=== PATIENT | male | born 1965 | race Caucasian/White ===

== ENCOUNTER 2017-11-21 14:33 | Emergency (ER) | payer OTHER, SELFPAY ==
[2017-11-21 14:33] VITALS: BP 137/77; PULSE 65; RESP 16; TEMP 36.7; O2SAT 97; BMI 22.4
[2017-11-21] MEDS: Diphth,Pertuss(Acell),Tet Vac 0.5 ML Vial IM (15:27)
[2017-11-21 15:48] VITALS: BP 125/81; PULSE 59; RESP 16; O2SAT 98
--- NOTE | 2017-11-21 15:50 | ED.VISSUMM ---
- ER Visit Summary Date of Service: 11/21/17 Chief Complaint: Facial laceration History of Present Illness: The patient is a 52 M presenting for evaluation secondary to a facial laceration. Patient states that he was cleaning today and tried to stand up and struck the left side of his face on a dresser. He denies any loss of consciousness. He is not on any sort of anticoagulants. Denies any numbness weakness visual changes nausea or vomiting. His tetanus status is greater than 5 years. He denies any other injuries. Physical Examination: Physical exam unremarkable and noted in the template except for examination of the patient's face. There is evidence of a 2 cm semicircular laceration just lateral to the patient's left eyebrow. PRL, EOMI no evidence of entrapment. Test Results: None indicated Emergency Department Course and Treatment: Patient presented with a simple facial laceration. No imaging is indicated at this point. Patient's wound was anesthetized using 3 cc 1% lidocaine. Wound was copiously irrigated with sterile saline, and then the patient was prepped and draped in a sterile fashion. 4 simple interrupted 6-0 nylon sutures were placed with good hemostasis and good wound alignment. Patient tolerated this well Patient was recommended to follow-up with his primary care physician in 3-5 days for suture removal. Bacitracin was placed over the wound. Disposition: Discharge Impression: 1. 2 cm left eyebrow laceration 2. Laceration repair by ED physician This note was generated with [employer] dictation software. It may contain incorrect words, spelling, and punctuation that were not noted in review of the chart prior to signing ED Disposition - Plan for ED Patient: Disposition: Home or Assisted Living Chief Complaint: Laceration Diagnosis: Laceration of eyebrow Instructions: ED Laceration Facial Sutr Tape Referrals: Donald Garcia MD [Primary Care Provider] - 3-5 Days suture removal
== END 2017-11-21 15:57 | disposition home or self-care (01) ==
PROVIDERS: Emergency Provider Emergency Medicine; Family Provider Family Medicine; PCP Family Medicine
DX: S01.112A Laceration without foreign body of left eyelid and periocular area, initial encounter (principal); W22.8XXA Striking against or struck by other objects, initial encounter; Y93.E9 Activity, other interior property and clothing maintenance; Y92.9 Unspecified place or not applicable
CPT/HCPCS: 12011; 90471; 90715; 99283

== ENCOUNTER 2021-09-24 18:30 | Emergency (ER) | payer OTHER, SELFPAY ==
[2021-09-24 18:30] VITALS: BP 124/86; PULSE 73; RESP 15; TEMP 36.6; O2SAT 98; BMI 22.0
--- NOTE | 2021-09-24 18:54 | EX.ED.UPPERE ---
HPI History of Present Illness Chief Complaint: Upper Extremity Injury Informant: patient Occured/Mechanism Mechanism/Context: Yes injury Onset/Context/Timing Onset: Today and Hours Context: Sudden Onset Timing: Continuous Quality of Pain: Sharp Current Severity: Mild Maximum Severity: Mild Associated Symptoms Associated Symptoms: Negative for Parasthesia, Weakness and Loss of Funtion Narrative Narrative: 6-year-old male who was seen in past medical history. [id number]. No prior history of any surgeries right upper extremity. Patient works at [employer]. States he was lifting probably a 5 pound box today of empty plastic bottles and he felt discomfort in his proximal forearm just past his elbow. No prior history. No fall. No other trauma. Discomfort with movement. Prior similar symptoms: No Recent Illness/Hospitalization: No PFSH PFSH Medical History no medical history no medical history Home Medications NK 11/21/17 [History Last Taken Unknown] Allergy/AdvReac Type Severity Reaction Status Date / Time No Known Allergies Allergy Verified 09/24/21 18:32 Social History Smoking Status: Current every day smoker ROS ROS ED ROS Narrative Denies recent illness. Review of Systems ROS Unobtainable: Denies due to encephalopathy Constitutional Constitutional ED: Denies fever(s) Eyes Eyes: Denies change in vision ENT ENT ED: Denies ear pain Cardiovascular Cardiovascular: Denies chest pain Respiratory/Chest Respiratory/Chest: Denies cough or dyspnea Gastrointestinal Gastrointestinal: Denies abdominal pain, diarrhea, nausea or vomiting Genitourinary Genitourinary ED: Denies dysuria Musculoskeletal Musculoskeletal: Denies myalgias Integumentary Denies rash Neurologic Neurologic: Denies headache(s) Psychiatric Psychiatric: Denies depression Endocrine Endocrinology: Denies polyuria Hematologic/Lymphatic Hematologic/Lymphatic: Denies easy bruising Allergic/Immunologic Allergic/Immunologic ED: Denies urticaria EXAM Physical Exam Narrative Exam Narrative: Well-appearing middle-aged male. Vital signs stable afebrile. H EENT exam unremarkable. Lungs are clear. Heart regular rhythm with a murmur. Abdomen soft nontender. Moving all 4 extremities. Neurovascular intact. Specifically right arm the short elbow is nontender Range of motion. His right proximal forearm over the palmar aspect just distal to the elbow has mild tenderness. There is no deficit. 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 There is no bruising. No swelling. And no soft tissue deficit. Const Vital Signs: 09/24/21 18:30 Temperature 97.9 F Temperature Source Temporal Pulse Rate 73 Respiratory Rate 15 Blood Pressure 124/86 H Blood Pressure Mean 98 Pulse Ox 98 Oxygen Delivery Method Room Air Positive well nourished and well developed; Negative for obese, cachectic, contractures or unkempt General Appearance ED: well developed and NAD; Negative for unkempt, cachectic or contractures Nutritional Appearance: Negative for cachectic or obese HEENT Reports moist mucous membranes normocephalic and atraumatic; Negative for trauma or tenderness Eyes PERRL and EOMs intact bilaterally Neck full ROM and supple General: Negative for tenderness Chest Wall inspection of chest normal and palpation of chest normal Resp normal respiratory effort and clear to auscultation bilaterally Effort and Inspection: Negative for pain with movement Auscultation: Negative for rales, rhonchi or wheezes Cardio regular rate, regular rhythm, S1 normal heart sound, S2 normal heart sound and no murmurs GI non-tender, non-distended and no masses Inspection: Negative for abdominal distention Auscultation: normoactive bowel sounds Palpation: soft; Negative for tender, guarding or rebound tenderness present Back/Spine no CVA tenderness General Back: Negative for CVA tenderness Cervical Spine: Negative for cervical spine tenderness Thoracic Spine / Upper Back: Negative for thoracic spinal tenderness Extremity normal to inspection and full ROM Extremity Narrative: Mild tenderness soft tissue proximal right forearm just distal to the elbow. No swelling. Normal motor strength and sensation. Normal radial pulse. 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 No soft tissue deficit. Consistent with a myofascial strain. General Extremety ED: Negative for edema General Extremity: Negative for edema Neuro oriented x3, moves all extremities, no focal motor deficits and no sensory deficits noted Sensorium / Orientation: alert, oriented to person, oriented to place, oriented to time and stuporous; Negative for orientation impaired or lethargic Motor Exam: strength 5/5 throughout Psych mental status grossly normal Appearance: Negative for unkempt Attitude: No agitated Mood & Affect: Negative for depressed or tearful Skin Lesions: no lesions Rashes: no rashes Trauma: no lacerations or abrasions; Negative for abrasion or laceration MDM MDM MDM Narrative Medical decision making narrative: Count is normal. 56-year-old male. Work-related muscle strain right forearm. Labs nor x-rays are necessary. Motrin and Tylenol for pain. Limit lifting until pain-free. Discharge Plan Triage Chief Complaint: Upper Extremity Injury ED Provider: Mode Quiroz Dx/Rx/DC Orders Clinical Impression: Muscle strain of right forearm Instructions: ED Muscle Strain, Extremity Prescriptions: No Action NK RF: 0 Primary Care Provider: Donald Garcia Referrals: [facility]GROUP OF PHYSICIANS] - 1 Week if not improving Donald Garcia MD [Primary Care Provider] - Activity Restrictions/Additional Instructions: Ice your right forearm to decrease pain and swelling. Motrin and Tylenol for pain. No lifting more than 10 pounds until you are pain-free. This should progressively improve if not follow-up with [facility]. Disposition Disposition: Home, Self Care
== END 2021-09-24 19:27 | disposition home or self-care (01) ==
LOC: ED 19:14
PROVIDERS: Emergency Provider Emergency Medicine; PCP Family Medicine; Visit Provider Emergency Medicine
DX: S56.911A Strain of unspecified muscles, fascia and tendons at forearm level, right arm, initial encounter (principal); X50.0XXA Overexertion from strenuous movement or load, initial encounter; Y93.9 Activity, unspecified; Y92.9 Unspecified place or not applicable; F17.200 Nicotine dependence, unspecified, uncomplicated
CPT/HCPCS: 99282

== ENCOUNTER → 2022-05-25 | Outpatient (CLI) | payer OTHER, SELFPAY ==
[2022-05-25 15:27] LABS: Hematocrit 47.2 % (40-54); Hemoglobin 15.7 g/dL (13.0-16.5); Mean Corp Hgb Conc 33.3 g/dL (32-36); Mean Corpuscular Hgb 32.8 pg (27.0-32.0); Mean Corpuscular Volume 98.5 fL (80-94); Mean Platelet Vol. 9.5 fl (6.2-12.0); Platelet Count 394 K/mm3 (150-450); RBC Distribution Width CV 12.8 % (11.6-14.6); RBC Distribution Width SD 46.1 fl (35.1-43.9); Red Blood Count 4.79 M/mm3 (4.6-6.2); White Blood Count 8.3 K/mm3 (4.4-11.0)
[2022-05-25 15:48] LABS: Vitamin B12 603 pg/mL (211-911); Vitamin D,25 Hydroxy 43.5 ng/mL
[2022-05-25 16:00] LABS: ALB/GLOB Ratio 1.1 RATIO (0.9-2.4); AST(SGOT) 15 U/L (15-37); Alanine Aminotransfer ALT/SGPT 23 U/L (16-61); Albumin, Serum 3.8 g/dL (3.2-5.0); Alkaline Phosphatase 101 U/L (45-117); Anion Gap 8 (5-15); BUN 19 mg/dL (7-18); BUN/Creat Ratio 19.9 RATIO (10-20); Calcium,Total 8.8 mg/dL (8.5-10.1); Chloride 105 mmol/L (98-107); Cholesterol 190 mg/dL (200); Creatinine, Serum 0.96 mg/dL (0.70-1.30); EST Glomerular Filtration Rate 86 mL/min (>60); Est Glom Filt Rate - Afr Amer 104 mL/min (>60); Globulin 3.6 g/dL (2.2-4.2); Glucose 99 mg/dL (74-106); High Density Lipoprotein 48 mg/dL; PSA,Total - Annual Screen 0.36 ng/mL (0.00-4.00); Potassium 4.3 mmol/L (3.5-5.1); Protein, Total 7.4 g/dL (6.4-8.2); Sodium Level 138 mmol/L (136-145); Thyroid Stim Hormone (TSH) 1.24 uIU/mL (0.358-3.74); Triglycerides 95 mg/dL; Very Low Density Lipoprotein 19 mg/dL (5-40)
== END | disposition home or self-care (01) ==
LOC: MFPLAB 12:27
PROVIDERS: PCP Family Medicine; Referring Provider Family Medicine; Visit Provider Family Medicine
DX: Z13.220 Encounter for screening for lipoid disorders (principal); Z12.5 Encounter for screening for malignant neoplasm of prostate; R53.83 Other fatigue
CPT/HCPCS: 36415; 80053; 80061; 82306; 82607; 84153; 84403; 84443; 85027; G0103

== ENCOUNTER → 2022-06-01 | Outpatient (CLI) | payer OTHER, SELFPAY ==
--- NOTE | 2022-06-01 06:55 | CT_ITS ---
EXAM: CT CHEST, LUNG CANCER SCREENING WITHOUT INTRAVENOUS CONTRAST CLINICAL INDICATION: TOBACCO ABUSE TECHNIQUE: Helically acquired images were obtained of the chest without intravenous contrast using low dose (LDCT) lung cancer screening protocol. This CT exam was performed using one or more of the following dose reduction techniques: automated exposure control, adjustment of the mA and/or kV according to patient size, and/or use of iterative reconstruction technique. This report was created using [employer] report generation technology. COMPARISON: None. FINDINGS: LUNGS AND PLEURAL SPACES: In the right upper lobe medially there is a 5 mm nodule seen in series 2 image 96. Fleischner Society Guidelines for low-risk patients, no follow-up is necessary. For high-risk patients (smoking history or other known risk factors) an optional chest CT at 12 months could be performed. No pleural effusion or thickening. No pneumothorax. HEART: Unremarkable. Heart size is normal. No pericardial effusion. No significant coronary artery calcifications. MEDIASTINUM: Unremarkable. No mediastinal or hilar adenopathy. Esophagus is unremarkable. No hiatal hernia. THYROID: Unremarkable. No thyroid lesions. BONES/JOINTS: Unremarkable. No suspicious lytic or blastic abnormality. VASCULATURE: Unremarkable. Thoracic aorta is non-dilated. LYMPH NODES: Unremarkable. No enlarged lymph nodes. CT/Low Dose CT Lung Screening IMPRESSION: 1. 5 mm noncalcified nodule within the right upper lobe medially. No other nodules are identified. 2. Lung-RADS score: 3 - Probably Benign. Recommend low-dose CT (LDCT) in 6 months. Electronically Signed: Scooby Archuleta MD at 8:32 EDT ,
== END | disposition home or self-care (01) ==
LOC: CT 06:54
PROVIDERS: PCP Family Medicine; Referring Provider Family Medicine; Visit Provider Family Medicine
DX: Z12.2 Encounter for screening for malignant neoplasm of respiratory organs (principal); R91.1 Solitary pulmonary nodule; Z87.891 Personal history of nicotine dependence
CPT/HCPCS: 71271

== ENCOUNTER → 2023-06-05 | Outpatient (CLI) | payer BC, SELFPAY ==
--- NOTE | 2023-06-05 08:33 | CT_ITS ---
EXAM: CT CHEST, LUNG CANCER SCREENING WITHOUT INTRAVENOUS CONTRAST CLINICAL INDICATION: 6 mo fu for lung nodule TECHNIQUE: Helically acquired images were obtained of the chest without intravenous contrast using low dose (LDCT) lung cancer screening protocol. This CT exam was performed using one or more of the following dose reduction techniques: automated exposure control, adjustment of the mA and/or kV according to patient size, and/or use of iterative reconstruction technique. COMPARISON: Low-dose CT lung screening, 06/01/2022 FINDINGS: LUNGS AND PLEURAL SPACES: Apical parenchymal scarring bilaterally, right greater than left. Small apical blebs bilaterally. Unchanged 5 mm nodule in the right upper lobe medially (series 2, image 94). No pleural effusion or thickening. No new pulmonary nodules are identified. No focal airspace disease. HEART: No significant abnormality. Heart size is normal. No pericardial effusion. No significant coronary artery calcifications. MEDIASTINUM: No significant abnormality. No mediastinal or hilar adenopathy. Esophagus is unremarkable. No hiatal hernia. THYROID: No significant abnormality. No thyroid lesions. BONES/JOINTS: Degenerative changes in the spine. No suspicious lytic or blastic abnormality. VASCULATURE: No significant abnormality. Thoracic aorta is non-dilated. LYMPH NODES: No significant abnormality. No enlarged lymph nodes. CT/Low Dose CT Lung Screening IMPRESSION: Pulmonary nodule and mild emphysematous changes. ACR Lung CT Screening Reporting And Data System (Lung-RADS) score: 2S - Benign Appearance or Behavior. Additional clinically significant or potentially clinically significant findings are described. Recommend continued annual screening with a low-dose CT (LDCT) in 12 months. Electronically Signed: Darin Rick DO at 17:40 EDT ,
== END | disposition home or self-care (01) ==
PROVIDERS: PCP Family Medicine; Referring Provider Family Medicine; Visit Provider Family Medicine
DX: Z12.2 Encounter for screening for malignant neoplasm of respiratory organs (principal); R91.1 Solitary pulmonary nodule; Z87.891 Personal history of nicotine dependence
CPT/HCPCS: 71271

== ENCOUNTER → 2024-07-20 | Outpatient (CLI) | payer BC, SELFPAY ==
[2024-07-20 17:53] LABS: Hematocrit 40.2 % (40-54); Mean Corp Hgb Conc 34.8 g/dL (32-36); Mean Corpuscular Hgb 33.8 pg (27.0-32.0); Mean Corpuscular Volume 97.1 fL (80-94); Mean Platelet Vol. 8.8 fl (6.2-12.0); Platelet Count 363 K/mm3 (150-450); RBC Distribution Width CV 12.3 % (11.6-14.6); RBC Distribution Width SD 44.1 fl (35.1-43.9); Red Blood Count 4.14 M/mm3 (4.6-6.2); White Blood Count 11.2 K/mm3 (4.4-11.0)
[2024-07-20 18:23] LABS: Anion Gap 5 (5-15); BUN 23 mg/dL (7-18); BUN/Creat Ratio 23.1 RATIO (10-20); Calcium,Total 8.7 mg/dL (8.5-10.1); Chloride 108 mmol/L (98-107); Cholesterol 207 mg/dL (200); EST Glomerular Filtration Rate 81 mL/min (>60); Est Glom Filt Rate - Afr Amer 98 mL/min (>60); Glucose 83 mg/dL (74-106); High Density Lipoprotein 60 mg/dL; PSA,Total - Annual Screen 0.46 ng/mL (0.00-4.00); Potassium 3.8 mmol/L (3.5-5.1); Sodium Level 140 mmol/L (136-145); Triglycerides 40 mg/dL; Very Low Density Lipoprotein 8 mg/dL (5-40)
== END | disposition home or self-care (01) ==
PROVIDERS: PCP Family Medicine; Referring Provider Family Medicine; Visit Provider Family Medicine
DX: Z13.220 Encounter for screening for lipoid disorders (principal); Z13.1 Encounter for screening for diabetes mellitus; Z72.0 Tobacco use; Z12.5 Encounter for screening for malignant neoplasm of prostate
CPT/HCPCS: 36415; 80048; 80061; 84153; 85027; G0103

== ENCOUNTER → 2024-08-19 | Outpatient (CLI) | payer BC, SELFPAY ==
--- NOTE | 2024-08-19 08:50 | CT_ITS ---
STUDY: LOW DOSE CT LUNG CANCER SCREENING REASON FOR EXAM: Male, 59 years old. smoker and gt;30 years RADIATION DOSAGE (If Supplied By Facility): CTDIvol = ( 2.01 ) mGy, DLP = ( 73.99 ) mGycm TECHNIQUE: No contrast was administered. Low dose technique was utilized (average mAS-38 and kVp 120). 1.25 mm axial source images with a slice interval of 1.25-mm were reconstructed in lung windows. 2.5 mm axial source images with a slice interval of 2.5-mm were reconstructed in lung windows. 5.0 mm axial source images with a slice interval of 5.0-mm were reconstructed in soft tissue windows. COMPARISON: 06/05/2023 Emphysema: Mild bilateral apical scarring. Mild emphysema. No change in the 5 mm noncalcified nodule in the medial right upper lobe of the lungs on image 88 consistent with a noncalcified granuloma.. Endobronchial lesion: None Aorta: No thoracic aortic aneurysm. CORONARY ARTERIES: Coronary artery calcification is not seen. Heart: No cardiomegaly. Pulmonary artery: Normal Mediastinal nodes: Normal Other chest and abdominal findings: None CT/Low Dose CT Lung Screening IMPRESSION: Lung-RADS category 2 - Continue annual screening with LDCT in 12 months. IMPORTANT NOTES FOR USE: ACR Lung-RADS Version 1.1 Assessment Categories Release Date: 2018 Category: Coded 0-4 bases on nodule(s) with highest degree of suspicion. Negative screen is defined as categories 1 and 2; a positive screen is defined as categories 3 and 4. Category 3 and 4A nodules that are unchanged on interval CT should be coded as category 2, and individuals returned to screening in 12 months. Category 4X: Category 3 or 4 nodules with additional imaging findings that increase the suspicion of lung cancer, such as spiculation, GGN that doubles in size in 1 year, enlarged lymph notes, etc. Category Modifiers: S (significant finding unrelated to lung cancer) Electronically Signed: Chas Butcher MD at 13:01 EST ,
== END | disposition home or self-care (01) ==
PROVIDERS: PCP Family Medicine; Referring Provider Family Medicine; Visit Provider Family Medicine
DX: Z12.2 Encounter for screening for malignant neoplasm of respiratory organs (principal); Z72.0 Tobacco use
CPT/HCPCS: 71271

== ENCOUNTER → 2025-07-30 | Outpatient (CLI) | payer BC, SELFPAY ==
[2025-07-30 18:20] LABS: Anion Gap 10 (5-15); BUN 21 mg/dL (4-19); BUN/Creat Ratio 19.2 RATIO (10-20); Calcium,Total 9.3 mg/dL (7.6-11.0); Carbon Dioxide 27.8 mmol/L (21.0-32.0); Chloride 101 mmol/L (98-108); Cholesterol 197 mg/dL (<=200); Glucose 86 mg/dL (70-99); Low Density Lipoprotein Calc. 133 mg/dL; PSA,Total - Annual Screen 0.61 ng/mL (0.02-4.00); Potassium 4.1 mmol/L (3.3-5.1); Triglycerides 58 mg/dL; Very Low Density Lipoprotein 12 mg/dL (5-40); cholesterol:hdl ratio screen 3.71
--- OUTSIDE RECORDS SUMMARY | 2025-07-30 20:07 | XMS RPT_ITS | CCD ---
Author Organization [facility] Informat ion Partnership [facility] Care Team Providers Care Account Group Supervisor Name Role Phone Long Garcia Referring Unavailable Long Garcia Attending Unavailable Long Garcia Primary Care Unavailable Long Garcia Referring Unavailable Long Garcia Attending Unavailable Long Garcia Primary Care Unavailable Problems Problem Classification Problem Date Documented Da te Episodic/Chronic Open wounds of head; neck; and trunk (3 sources) Laceration of eyebrow; Translations: [Laceration without foreign body of unspecified eyelid and periocular area, initial encounter] 11-22-2017 Episodic Other screening for suspected conditions (not mental disorders or infectious disease) (2 sources) Encounter for screening for malignant neoplasm of respiratory organs; Translations: [Encounter for screening for lipoid disorders] Onset: 08-15-2024 Episodic Sprains and strains (3 sources) Strain of muscle of upper limb; Translations: [Strain of unspecified muscles, fascia and tendons at forearm level, right arm, initial encounter] 10-02-2021 Episodic Results Test Name Value Interpretation Reference Range Facil ity Low Dose CT Lung Screeningon 08-19-[address] Lung Screening [facility] [address] [place] [address] Lung Screening MR#: [id number] Acct: [id number] Name: CHUCK VASQUEZ Rep #: [id number] : 1965 M 59 From: Chas Butcher MD PCP: Dr. Long Garcia MD Status: REG CLI Study: Low Dose CT Lung Screening Date of Exam: 08/19 Exam# [id number] Ordering Dr: Long Garcia [id number] STUDY: LOW DOSE CT LUNG CANCER SCREENING REASON FOR EXAM: Male, 59 years old. smoker and gt;30 years RADIATION DOSAGE (If Supplied By Facility): CTDIvol = ( 2.01 ) mGy, DLP = ( 73.99 ) mGycm TECHNIQUE: No contrast was administered. Low dose technique was utilized (average mAS-38 and kVp 120). 1.25 mm axial source images with a slice interval of 1.25-mm were reconstructed in lung windows. 2.5 mm axial source images with a slice interval of 2.5-mm were reconstructed in lung windows. 5.0 mm axial source images with a slice interval of 5.0-mm were reconstructed in soft tissue windows. COMPARISON: 06/05/2023 Emphysema: Mild bilateral apical scarring. Mild emphysema. No change in the 5 mm noncalcified nodule in the medial right upper lobe of the lungs on image 88 consistent with a noncalcified granuloma.. Endobronchial lesion: None Aorta: No thoracic aortic aneurysm. CORONARY ARTERIES: Coronary artery calcification is not seen. Heart: No cardiomegaly. Pulmonary artery: Normal Mediastinal nodes: Normal Other chest and abdominal findings: None CT/Low Dose CT Lung Screening IMPRESSION: Lung-RADS category 2 - Continue annual screening with LDCT in 12 months. IMPORTANT NOTES FOR USE: ACR Lung-RADS Version 1.1 Assessment Categories Release Date: 2018 Category: Coded 0-4 bases on nodule(s) with highest degree of suspicion. Negative screen is defined as categories 1 and 2; a positive screen is defined as categories 3 and 4. Category 3 and 4A nodules that are unchanged on interval CT should be coded as category 2, and individuals returned to screening in 12 months. Category 4X: Category 3 or 4 nodules with additional imaging findings that increase the suspicion of lung cancer, such as spiculation, GGN that doubles in size in 1 year, enlarged lymph notes, etc. Category Modifiers: S (significant finding unrelated to lung cancer) Electronically Signed: Chas Butcher MD at 13:01 EST , CC: Dr. Long Garcia MD Program Manager Slp: Signed Normal [facility] Basic Metabolic Profile (BMP )on 07-20-2024 BUN/CRE 23.1 RATIO High 10-20 [facility] Comment on above: Order Comment: Order Date: 07/20/24 Order Info: [id number] - BMP Order Info: - LIPID Order Info: [id number] - PSA Performed By: #### L 501.9910, L500.4100, L500.2500 #### [facility] [address] [place], [address] CA,Total 8.7 mg/dL Normal 8.5-10.1 [facility] Comment on above: Order Comment: Order Date: 07/20/24 Order Info: [id number] - BMP Order Info: - LIPID Order Info: [id number] - PSA Performed By: #### L 501.9910, L500.4100, L500.2500 #### [facility] [address] [place], [address] Chloride [Moles/Vol] 108 mmol/L High 98-107 [facility] Comment on above: Order Comment: Order Date: 07/20/24 Order Info: [id number] - BMP Order Info: - LIPID Order Info: [id number] - PSA Performed By: #### L 501.9910, L500.4100, L500.2500 #### [facility] [address] [place], [address] CO2 [Moles/Vol] 27.0 mmol/L Normal 21.0-32.0 [facility] Comment on above: Order Comment: Order Date: 07/20/24 Order Info: [id number] - BMP Order Info: - LIPID Order Info: [id number] - PSA Performed By: #### L 501.9910, L500.4100, L500.2500 #### [facility] [address] [place], [address] Creatinine [Mass/Vol] 1.00 mg/dL Normal 0.70-1.30 [facility] Comment on above: Order Comment: Order Date: 07/20/24 Order Info: [id number] - BMP Order Info: - LIPID Order Info: [id number] - PSA Result Comment: The validity of the calculated GFR GFRAA in patients over 70 years has not been determined. Clinical correlation is essential. Performed By: #### L 501.9910, L500.4100, L500.2500 #### [facility] [address] [place], [address] EST GFR - AA 98 mL/min Normal >60 [facility] Comment on above: Order Comment: Order Date: 07/20/24 Order Info: [id number] - BMP Order Info: - LIPID Order Info: [id number] - PSA Result Comment: Afri can Iranian GFR Calc Performed By: #### L 501.9910, L500.4100, L500.2500 #### [facility] [address] [place], [address] GAP 5 Normal 5-15 [facility] Comment on above: Order Comment: Order Date: 07/20/24 Order Info: [id number] - BMP Order Info: - LIPID Order Info: [id number] - PSA Performed By: #### L 501.9910, L500.4100, L500.2500 #### [facility] [address] [place], [address] GFR/1.73 sq M.predicted among non-blacks MDRD (S/P/Bld) [Vol rate/Area] 81 mL/min/{1.73_m2} Normal >60 [facility] Comment on above: Order Comment: Order Date: 07/20/24 Order Info: [id number] - BMP Order Info: - LIPID Order Info: [id number] - PSA Result Comment: Non- GFR Calc Performed By: #### L 501.9910, L500.4100, L500.2500 #### [facility] [address] [place], [address] Glucose [Mass/Vol] 83 mg/dL Normal 74-106 [facility] Comment on above: Order Comment: Order Date: 07/20/24 Order Info: [id number] - BMP Order Info: - LIPID Order Info: [id number] - PSA Performed By: #### L 501.9910, L500.4100, L500.2500 #### [facility] [address] [place], [address] Potassium [Moles/Vol] 3.8 mmol/L Normal 3.5-5.1 [facility] Comment on above: Order Comment: Order Date: 07/20/24 Order Info: [id number] - BMP Order Info: - LIPID Order Info: [id number] - PSA Performed By: #### L 501.9910, L500.4100, L500.2500 #### [facility] [address] [place], [address] Sodium [Moles/Vol] 140 mmol/L Normal 136-145 [facility] Comment on above: Order Comment: Order Date: 07/20/24 Order Info: [id number] - BMP Order Info: - LIPID Order Info: [id number] - PSA Performed By: #### L 501.9910, L500.4100, L500.2500 #### [facility] [address] [place], [address] Urea nitrogen [Mass/Vol] 23 mg/dL High 7-18 [facility] Comment on above: Order Comment: Order Date: 07/20/24 Order Info: [id number] - BMP Order Info: - LIPID Order Info: [id number] - PSA Performed By: #### L 501.9910, L500.4100, L500.2500 #### [facility] [address] [place], [id number] CBC-Complete Blood Cnt No Di ffon 07-20-2024 Erythrocyte distribution width (RBC) [Ratio] 12.3 % Normal 11.6-14.6 [facility] Comment on above: Order Comment: Order Date: 07/20/24 Order Info: [id number] - CBC Performed By: #### L 100.0500 #### [facility] [address] [place], [address] Hematocrit (Bld) [Volume fraction] 40.2 % Normal 40-54 [facility] Comment on above: Order Comment: Order Date: 07/20/24 Order Info: [id number] - CBC Performed By: #### L 100.0500 #### [facility] [address] [place], [address] Hemoglobin (Bld) [Mass/Vol] 14.0 g/dL Normal 13.0-16.5 [facility] Comment on above: Order Comment: Order Date: 07/20/24 Order Info: [id number] - CBC Performed By: #### L 100.0500 #### [facility] [address] [place], [address] MCH (RBC) [Entitic mass] 33.8 pg High 27.0-32.0 [facility] Comment on above: Order Comment: Order Date: 07/20/24 Order Info: [id number] - CBC Performed By: #### L 100.0500 #### [facility] [address] [place], [address] MCHC (RBC) [Mass/Vol] 34.8 g/dL Normal 32-36 [facility] Comment on above: Order Comment: Order Date: 07/20/24 Order Info: [id number] - CBC Performed By: #### L 100.0500 #### [facility] [address] [place], [address] MCV (RBC) [Entitic vol] 97.1 fL High 80-94 [facility] Comment on above: Order Comment: Order Date: 07/20/24 Order Info: [id number] - CBC Performed By: #### L 100.0500 #### [facility] [address] [place], [address] Platelet mean volume (Bld) [Entitic vol] 8.8 fL Normal 6.2-12.0 [facility] Comment on above: Order Comment: Order Date: 07/20/24 Order Info: [id number] - CBC Performed By: #### L 100.0500 #### [facility] [address] [place], [address] Platelets (Bld) [#/Vol] 363 10*3/uL Normal 150-450 [facility] Comment on above: Order Comment: Order Date: 07/20/24 Order Info: [id number] - CBC Performed By: #### L 100.0500 #### [facility] [address] [place], [address] RBC (Bld) [#/Vol] 4.14 10*6/uL Low 4.6-6.[address] [facility] Comment on above: Order Comment: Order Date: 07/20/24 Order Info: [id number] - CBC Performed By: #### L 100.0500 #### [facility] [address] [place], [address] RDW SD 44.1 fl High 35.1-43.9 [facility] Comment on above: Order Comment: Order Date: 07/20/24 Order Info: [id number] - CBC Performed By: #### L 100.0500 #### [facility] [address] [place], [address] WBC (Bld) [#/Vol] 11.2 10*3/uL High 4.4-11.[address] [facility] Comment on above: Order Comment: Order Date: 07/20/24 Order Info: [id number] - CBC Performed By: #### L 100.0500 #### [facility] [address] [place], [address] Lipid Profileon 07-20-2024 Cholesterol [Mass/Vol] 207 mg/dL High 200 [facility] Comment on above: Order Comment: Order Date: 07/20/24 Order Info: 06 - BMP Order Info: [id number] - LIPID Order Info: [id number] - PSA Result Comment: <200 mg/dL Desirable 200-240 mg/dL Borderline >240 mg/dL High Risk Performed By: #### L 501.9910, L500.4100, L500.2500 #### [facility] [address] [place], [address] Cholesterol in HDL [Mass/Vol] 60 mg/dL Normal [facility] Comment on above: Order Comment: Order Date: 07/20/24 Order Info: [id number] - BMP Order Info: [id number] - LIPID Order Info: [id number] - PSA Result Comment: The drugs N-Acetylcysteine and Metamizole may falsely depress this assay. Reference Range HDL <40 mg/dL Low HDL Cholesterol HDL >or= 60 mg/dL High HDL Cholesterol Performed By: #### L 501.9910, L500.4100, L500.2500 #### [facility] [address] [place], [address] Cholesterol in LDL [Mass/Vol] 139 mg/dL High 0-130 [facility] Comment on above: Order Comment: Order Date: 07/20/24 Order Info: 06 - BMP Order Info: [id number] - LIPID Order Info: [id number] - PSA Performed By: #### L 501.9910, L500.4100, L500.2500 #### [facility] [address] [place], [address] Cholesterol in VLDL [Mass/Vol] 8 mg/dL Normal 5-40 [facility] Comment on above: Order Comment: Order Date: 07/20/24 Order Info: 666- - BMP Order Info: [id number] - LIPID Order Info: [id number] - PSA Performed By: #### L 501.9910, L500.4100, L500.2500 #### [facility] [address] [place], [place], [address] Triglyceride [Mass/Vol] 40 mg/dL Normal [facility] Comment on above: Order Comment: Order Date: 07/20/24 Order Info: [id number] - BMP Order Info: - LIPID Order Info: [id number] - PSA Result Comment: The drugs N-Acetylcysteine and Metamizole may falsely depress this assay. Serum Triglycerides Reference Interval Normal <150 mg/dL Borderline high 150 - 199 mg/dL High 200 - 499 mg/dL Very High > or = 500 mg/dL Performed By: #### L 501.9910, L500.4100, L500.2500 #### [facility] [address] [place], [place], [address] PSA,Total - Annual Screenon 07-20-2024 PSA,TOT SCREEN 0.46 ng/mL Normal 0.00-4.00 [facility] Comment on above: Order Comment: Order Date: 07/20/24 Order Info: [id number] - BMP Order Info: - LIPID Order Info: [id number] - PSA Result Comment: This test was performed using the TPSA assay method for the [employer] chemistry system. Values obtained with different assay methods cannot be used interchangably. When changing PSA assays in the course of monitoring a patient, additional sequential testing should be carried out to confirm baseline values. Performed By: #### L 501.9910, L500.4100, L500.2500 #### [facility] [address] [place], [place], [address] Basophil percentageon 2021 Bilirubin [Mass/Vol] 0.40 mg/dL 0.20-1.00 [facility] Work Phone: Comment on above: For patients on eltr ombopag therapy, use of Dimension [place] TBIL is not recommended. Chloride [Moles/Vol] 105 mmol/L 98-107 [facility] Work Phone: Cholesterol [Mass/Vol] 190 mg/dL <200 [facility] Work Phone: Comment on above: <200 mg/dL Desirable 200-240 mg/dL Borderline >240 mg/dL High Risk Glucose [Mass/Vol] 99 mg/dL 74-106 [facility] Work Phone: Potassium [Moles/Vol] 4.3 mmol/L 3.5-5.1 [facility] Work Phone: Protein [Mass/Vol] 7.4 g/dL 6.4-8.2 [facility] Work Phone: Sodium [Moles/Vol] 138 mmol/L 136-145 [facility] Work Phone: Testosterone [Mass/Vol] 360.82 ng/dL [facility] Work Phone: Comment on above: CENTRAL 90% REFERENC E RANGES MALE AGE <50 197.44 - 669.58 ng/dL MALE AGE > or = 50 187.72 - 684.19 ng/dL FEMALE AGE <50 8.38 - 35.01 ng/dL FEMALE AGE > or = 50 <7.00 - 35.92 ng/dL Effective as of 03/25/21 Triglyceride [Mass/Vol] 95 mg/dL <199 [facility] Work Phone: Comment on above: The drugs N-Acetylcy steine and Metamizole may falsely depress this assay.Serum Triglycerides Reference Interval Normal <150 mg/dL Borderline high 150 - 199 mg/dL High 200 - 499 mg/dL Very High > or = 500 mg/dL WBC (Bld) [#/Vol] 8.3 10*3/uL 4.4-11.0 [facility] Work Phone: Blood erythrocytes count (nu mber/volume)on 05-25-2022 RBC (Bld) [#/Vol] 4.79 10*6/uL 4.6-6.[address] [facility] Work Phone: Blood hemoglobin measurement (mass/volume)on 05-25-2022 Hemoglobin (Bld) [Mass/Vol] 15.7 g/dL 13.0-16.5 [facility] Work Phone: Blood platelet mean volumeon 05-25-2022 Platelet mean volume (Bld) [Entitic vol] 9.5 fL 6.2-12.0 [facility] Work Phone: Determination of erythrocyte mean corpuscular volume (MCV)on 05-25-2022 MCV (RBC) [Entitic vol] 98.5 fL 80-94 [facility] Work Phone: Hematocrit Auto (Bld) [Volum e fraction]on 05-25-2022 Hematocrit (Bld) [Volume fraction] 47.2 % 40-54 [facility] Work Phone: Laboratory - Chemistry and C hemistry - challengeon 05-25-2022 ALP [Catalytic activity/Vol] 101 U/L 45-117 [facility] Work Phone: ALT [Catalytic activity/Vol] 23 U/L 16-61 [facility] Work Phone: CO2 [Moles/Vol] 25.0 mmol/L 21.0-32.0 [facility] Work Phone: Cobalamin (Vitamin B12) [Mass/Vol] 603 pg/mL 211-911 [facility] Work Phone: Globulin (S) [Mass/Vol] 3.6 g/dL 2.2-4.2 [facility] Work Phone: Urea nitrogen/Creatinine [Mass ratio] 19.9 mg/mg 10-20 [facility] Work Phone: Laboratory - Hematology and Cell countson 05-25-2022 Erythrocyte distribution width (RBC) [Entitic vol] 46.1 fL 35.1-43.9 [facility] Work Phone: Erythrocyte distribution width (RBC) [Ratio] 12.8 % 11.6-14.6 [facility] Work Phone: MCH (RBC) [Entitic mass] 32.8 pg 27.0-32.0 [facility] Work Phone: MCHC Auto (RBC) [Mass/Vol]on 05-25-2022 MCHC (RBC) [Mass/Vol] 33.3 g/dL 32-36 [facility] Work Phone: No Panel Informationon 05-25 Estimated GFR (MDRD) Amer 104 mL/min >60 [facility] Work Phone: Comment on above: GFR Calc Estimated GFR (MDRD) Non-Af Amer 86 mL/min >60 [facility] Work Phone: Comment on above: Non- GFR Calc Prostate Specific Antigen Screen 0.36 ng/mL 0.00-4.00 [facility] Work Phone: Comment on above: This test was perfor med using the TPSA assay method for [employer] chemistry system. Values obtained with differentassay methods cannot be used interchangably.When changing PSA assays in the course of monitoring apatient, additional sequential testing should be carriedout to confirm baseline values. Thyroid Stimulating Hormone (TSH) 1.24 uIU/mL 0.358-3.74 [facility] Work Phone: Vitamin D 25-Hydroxy 43.5 ng/mL [facility] Work Phone: Comment on above: Vitamin D 25(OH) Sta tus Range Deficiency <20 ng/mL (50nmol/L) Insufficiency 20 - 30 ng/mL (50 - 75 nmol/L) Sufficiency 30 - 100 ng/mL (75 - 250 nmol/L) Toxicity >100 ng/mL (>250 nmol/L) Platelets bldon 05-25-2022 Platelets (Bld) [#/Vol] 394 10*3/uL 150-450 [facility] Work Phone: Serum or plasma albumin osbaldo urement (mass/volume)on 05-25-2022 Albumin [Mass/Vol] 3.8 g/dL 3.2-5.0 [facility] Work Phone: Serum or plasma albumin/glob ulin mass ratioon 05-25-2022 Albumin/Globulin [Mass ratio] 1.1 {ratio} 0.9-2.4 [facility] Work Phone: Serum or plasma calcium osbaldo urement (mass/volume)on 05-25-2022 Calcium [Mass/Vol] 8.8 mg/dL 8.5-10.1 [facility] Work Phone: Serum or plasma cholesterol in HDL measurement (mass/volume)on 05-25-2022 Cholesterol in HDL [Mass/Vol] 48 mg/dL >40 [facility] Work Phone: Comment on above: The drugs N-Acetylcy steine and Metamizole may falsely depress this assay. Reference Range HDL <40 mg/dL Low HDL Cholesterol HDL >or= 60 mg/dL High HDL Cholesterol Serum or plasma cholesterol in VLDL measurement (mass/volume)on 05-25-2022 Cholesterol in VLDL [Mass/Vol] 19 mg/dL 5-40 [facility] Work Phone: Serum or plasma creatinine m easurement (mass/volume)on 05-25-2022 Creatinine [Mass/Vol] 0.96 mg/dL 0.70-1.30 [facility] Work Phone: Comment on above: The validity of the calculated GFR & GFRAA in patients over 70 years has not been determined. Clinical correlation is essential. Serum or plasma low density lipoprotein (LDL) cholesterol measurement (mass/volume)on 05-25-2022 Cholesterol in LDL [Mass/Vol] 123 mg/dL 0-130 [facility] Work Phone: Serum or plasma urea nitroge n measurement (mass/volume)on 05-25-2022 Urea nitrogen [Mass/Vol] 19 mg/dL 7-18 [facility] Work Phone: Thin prep Papanicolaou smear with manual screeningon 05-25-2022 Thin prep Papanicolaou smear with manual screening 15 U/L 15-37 [facility] Work Phone: Thin prep Papanicolaou smear with manual screening 8 5-15 [facility] Work Phone: XR CHEST PA AND LATERALon XR CHEST PA AND LATERAL EXAM: XR CHEST PA AND LATERAL HISTORY: Pre-employment examination. COMPARISON: Portable chest January 25, 2012. TECHNIQUE: Frontal and lateral views of the chest. FINDINGS: Cardiac silhouette and mediastinal contours are within normal limits. The lungs are expanded and appear generally clear with no airspace consolidation, pneumothorax, or pleural effusion. No obvious acute osseous abnormality. IMPRESSION: No acute cardiopulmonary process. Normal [facility] Encounters Encounter Date Encounter Type Care Provider Facility Start: 08-19-2024 End: 08-19-2024 [facility] Facility:[facility] Start: 07-20-2024 End: 07-20-2024 [facility] Facility:[facility] Start: 06-05-2023 End: 06-05-2023 ambulatory [facility] Work Phone: Start: 06-05-2023 End: 06-05-2023 [facility] Work Phone: Start: 06-01-2022 End: 06-01-2022 ambulatory [facility] Work Phone: Start: 06-01-2022 End: 06-01-2022 Patient encounter procedure [facility], [facility] Start: 05-25-2022 End: 05-25-2022 ambulatory [facility] Work Phone: Start: 05-25-2022 End: 05-25-2022 Patient encounter procedure [facility]Labor[facility], [facility] Procedures Date Procedure Procedure Detail Performing Clinician Start: 06-05-2023 CT of chest Start: 06-01-2022 CT of chest Immunizations Immunization Date Immunization Notes Care Provider Fa marie 11-21-2017 tetanus toxoid, redu jazmín diphtheria toxoid, and acellular pertussis vaccine, adsorbed [facility] Payers Date Payer Category Payer Unknown [id number] 2024 Self-pay [id number] 2024 Unknown [id number] Unknown [employer] [id number] Unknown [employer] [place] [id number] Unknown [employer] [facility] [id number] Unknown [id number] Unknown [id number] Social History Date Type Detail Facility Start: 09-24-2021 [facility] Start: 1965 Sex Assigned At Male [facility] Evaluation note Note Date & Type Note Facility Evaluation note No assessment information availa ble [facility] Work Phone: Summary Purpose Family History No Family History Records FoundNo Family History Records Found Advance Directives No Advanced Directives Records Found Advance Directive Response Recorded Date/ Time Living Will No September 24 8:09pm Power of Immigration Services Officer No September 24, 2021 8:09pm Chief Complaint and Reason for Visit Chief Complaint TOBACCO USE Chief Complaint 6 MTH FOLLOW UP/LUNG NODULE Additional Source Comments (unrecognized sect ion and content) No Status Records FoundNo Status Records Found INFORMATION SOURCE (unrecogn ized section and content) DATE CREATED AUTHOR 05/21/2021 [facility] DATE CREATED AUTHOR AUTHOR'S ORGANIZ ATION 09/17/2024 [facility] Goals (unrecognized section and content) Goals may be documented in a n alternate sectionGoals may be documented in an alternate sectionGoals may be documented in an alternate section Care Teams (unrecognized sec tion and content) Team Status: Active Member Role Status Dates Dr. Donald Garcia MD Family Provider Active Dr. Donald Garcia MD Primary Care Provider Activ e Team Status: Inactive Member Role Status Dates Dr. Donald Garcia MD Primary Care Provider, Attending Provider, Referring Provider Active FOR RECORDS PERTAINING TO PATIENTS WHO ARE OR HAVE BEEN ENROLLED IN A CHEMICAL DEPENDENCY/SUBSTANCEABUSE PROGRAM, SOME INFORMATION MAY BE OMITTED. This clinical summary was aggregated from multiple sources. Caution should be exercised in using it in the provision of clinical care. This summary normalizes information from multiple sources, and as a consequence, information in this document may materially change the coding, format and clinical context of patient data. In addition, data may be omitted in some cases. CLINICAL DECISIONS SHOULD BE BASED ON THE PRIMARY CLINICAL RECORDS. [employer] [facility]. provides no warranty or guarantee of the accuracy or completeness of information in this document.
== END | disposition home or self-care (01) ==
LOC: MFPLAB 16:44
PROVIDERS: PCP Family Medicine; Visit Provider Family Medicine
DX: Z13.220 Encounter for screening for lipoid disorders (principal); Z13.1 Encounter for screening for diabetes mellitus; Z12.5 Encounter for screening for malignant neoplasm of prostate
CPT/HCPCS: 80048; 80061; 84153; G0103

== ENCOUNTER → 2025-08-20 | Outpatient (CLI) | payer BC, SELFPAY ==
--- NOTE | 2025-08-20 12:54 | CT_ITS ---
PROCEDURE: LOW DOSE CT LUNG SCREENING 08/20/2025 REASON FOR EXAM: HEALTH MAINT TECHNIQUE: Procedure Code: CTLUNGSCREEN Modality: CT Procedure: LOW DOSE CT LUNG SCREENING Coronal and Sagittal reconstruction series were provided. One or more dose reduction techniques were used (e.g., Automated exposure control, adjustment of the mA and/or kV according to patient size, use of iterative reconstruction technique). REFERENCE LINK: [employer] Lung-RADS RADIATION DOSE SUMMARY: DLP: 76.87 mGycm COMPARISON: Low-dose CT lung screening 08/19/2024 FINDINGS: PULMONARY NODULES: (Only nodules >3mm are reported) Nodules described below are on series 2 unless otherwise specified. Pulmonary Nodules: Stable medial right middle lobe 5 mm solid pulmonary nodule (image 89). Hardware:None. Lymph Nodes:Prominent mediastinal lymph nodes. No lymphadenopathy. Heart and Vasculature:The heart is normal in size.The main pulmonary artery and thoracic aorta normal in caliber. Coronary Artery Calcifications: Absent Lungs and Airways: Emphysematous changes. Stable apical scarring. No focal lung consolidation. The central airways are patent. Pleura:No pneumothorax or pleural effusion. Upper Abdomen:Unremarkable. Bones:No aggressive osseous lesions. Degenerative changes of the thoracic spine CT/Low Dose CT Lung Screening IMPRESSION: Stable right middle lobe solid pulmonary nodule. Coronary artery calcification (CAC) is absent Lung-RADS Category: 2 BENIGN (BASED ON IMAGING FEATURES OR INDOLENT BEHAVIOR). RECOMMEND 12-MONTH SCREENING LDCT. Reading Location: [id number]
--- OUTSIDE RECORDS SUMMARY | 2025-08-20 20:14 | XMS RPT_ITS | CCD ---
Author Organization [facility] Informat ion Partnership [facility] Care Team Providers Care Electroplating Technician Name Role Phone Long Garcia Referring Unavailable [...] Screeningon 08-19-[address] Lung Screening [facility] Imaging Services [address] [place] [address] Lung Screening MR#: [id number] Acct: [id number] Name: CHUCK VASQUEZ Rep #: [id number] : 1965 M 59 From: Chas Butcher MD PCP: Dr. Long Garcia MD Status: REG CLI Study: Low Dose CT Lung Screening Date of Exam: 08/19 Exam# [id number] Ordering Dr: Long Garcia [id number] STUDY: LOW DOSE CT LUNG CANCER SCREENING [...] EST , CC: Dr. 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, [address] CA,Total 8.7 mg/dL Normal 8.5-10.1 [facility] Comment on above: Order Comment: Order Date: 07/20/24 Order Info: [id number] - BMP Order Info: - LIPID Order Info: [id number] - PSA Performed By: #### L 501.9910, L500.4100, L500.2500 #### [facility] [address] [place], [address] Chloride [Moles/Vol] 108 mmol/L High 98-107 [facility] Comment on above: Order Comment: Order Date: 07/20/24 Order Info: [id number] - BMP Order Info: - LIPID Order Info: [id number] - PSA Performed By: #### L 501.9910, L500.4100, L500.2500 #### [facility] [address] [place], [address] CO2 [Moles/Vol] 27.0 mmol/L Normal 21.0-32.0 [facility] Comment on above: Order Comment: Order Date: 07/20/24 Order Info: [id number] - BMP Order Info: - LIPID Order Info: [id number]- - PSA Performed By: #### L 501.9910, L500.4100, L500.2500 #### [facility] [address] [place], [address] Creatinine [Mass/Vol] 1.00 mg/dL Normal 0.70-1.30 [facility] Comment on above: Order Comment: Order Date: 07/20/24 Order Info: 666-08 - BMP Order Info: - LIPID Order Info: [id number] - PSA Result Comment: The validity of the calculated GFR GFRAA in patients over 70 years has not been determined. Clinical correlation is essential. Performed By: #### L 501.9910, L500.4100, L500.2500 #### [facility] [address] [place], [address] EST GFR - AA 98 mL/min Normal >60 [facility] Comment on above: Order Comment: Order Date: 07/20/24 Order Info: [id number] - BMP Order Info: - LIPID Order Info: [id number] - PSA Result Comment: Afri can [place] GFR Calc Performed By: #### L 501.9910, L500.4100, L500.2500 #### [facility] [address] [place], [address] GAP 5 Normal 5-15 [facility] Comment on above: Order Comment: Order Date: 07/20/24 Order Info: 666-08 - BMP Order Info: - LIPID Order Info: [id number] - PSA Performed By: #### L 501.9910, L500.4100, L500.2500 #### [facility] [address] [place], [address] GFR/1.73 sq M.predicted among non-blacks MDRD (S/P/Bld) [Vol rate/Area] 81 mL/min/{1.73_m2} Normal >60 [facility] Comment on above: Order Comment: Order Date: 07/20/24 Order Info: 666-08 - BMP Order Info: - LIPID Order Info: [id number] - PSA Result Comment: Non- GFR Calc Performed By: #### L 501.9910, L500.4100, L500.2500 #### [facility] [address] [place], [address] Glucose [Mass/Vol] 83 mg/dL Normal 74-106 [facility] Comment on above: Order Comment: Order Date: 07/20/24 Order Info: [id number] - BMP Order Info: - LIPID Order Info: [id number] - PSA Performed By: #### L 501.9910, L500.4100, L500.2500 #### [facility] [address] [place], [address] Potassium [Moles/Vol] 3.8 mmol/L Normal 3.5-5.1 [facility] Comment on above: Order Comment: Order Date: 07/20/24 Order Info: 666-08 - BMP Order Info: - LIPID Order Info: [id number] - PSA Performed By: #### L 501.9910, L500.4100, L500.2500 #### [facility] [address] [place], [address] Sodium [Moles/Vol] 140 mmol/L Normal 136-145 [facility] Comment on above: Order Comment: Order Date: 07/20/24 Order Info: 666-08 - BMP Order Info: - LIPID Order Info: [id number] - PSA Performed By: #### L 501.9910, L500.4100, L500.2500 #### [facility] [address] [place], [address] Urea nitrogen [Mass/Vol] 23 mg/dL High 7-18 [facility] Comment on above: Order Comment: Order Date: 07/20/24 Order Info: 666-08 - BMP Order Info: - LIPID Order Info: [id number] - PSA Performed By: #### L 501.9910, L500.4100, L500.2500 #### [facility] [address] [place], [id number] CBC-Complete Blood Cnt No Di ffon 07-20-2024 Erythrocyte distribution width (RBC) [Ratio] 12.3 % Normal 11.6-14.6 [facility] Comment on above: Order Comment: Order Date: 07/20/24 Order Info: [id number] - CBC Performed By: #### L 100.0500 #### [facility] [address] [place], [address] Hematocrit (Bld) [Volume fraction] 40.2 % Normal 40-54 [facility] Comment on above: Order Comment: Order Date: 07/20/24 Order Info: [id number] - CBC Performed By: #### L 100.0500 #### [facility] [address] [place], [address] Hemoglobin (Bld) [Mass/Vol] 14.0 g/dL Normal 13.0-16.5 [facility] Comment on above: Order Comment: Order Date: 07/20/24 Order Info: [id number] - CBC Performed By: #### L 100.0500 #### [facility] [address] [place], [address] MCH (RBC) [Entitic mass] 33.8 pg High 27.0-32.0 [facility] Comment on above: Order Comment: Order Date: 07/20/24 Order Info: [id number] - CBC Performed By: #### L 100.0500 #### [facility] [address] [place], [address] MCHC (RBC) [Mass/Vol] 34.8 g/dL Normal 32-36 [facility] Comment on above: Order Comment: Order Date: 07/20/24 Order Info: [id number] - CBC Performed By: #### L 100.0500 #### [facility] [address] [place], [address] MCV (RBC) [Entitic vol] 97.1 fL High 80-94 [facility] Comment on above: Order Comment: Order Date: 07/20/24 Order Info: [id number] - CBC Performed By: #### L 100.0500 #### [facility] [address] [place], [address] Platelet mean volume (Bld) [Entitic vol] 8.8 fL Normal 6.2-12.0 [facility] Comment on above: Order Comment: Order Date: 07/20/24 Order Info: [id number] - CBC Performed By: #### L 100.0500 #### [facility] [address] [place], [address] Platelets (Bld) [#/Vol] 363 10*3/uL Normal 150-450 [facility] Comment on above: Order Comment: Order Date: 07/20/24 Order Info: [id number] - CBC Performed By: #### L 100.0500 #### [facility] [address] [place], [address] RBC (Bld) [#/Vol] 4.14 10*6/uL Low 4.6-6.2 [facility] Comment on above: Order Comment: Order Date: 07/20/24 Order Info: [id number] - CBC Performed By: #### L 100.0500 #### [facility] [address] [place], [address] RDW SD 44.1 fl High 35.1-43.9 [facility] Comment on above: Order Comment: Order Date: 07/20/24 Order Info: [id number] - CBC Performed By: #### L 100.0500 #### [facility] [address] [place], [address] WBC (Bld) [#/Vol] 11.2 10*3/uL High 4.4-11.0 [facility] Comment on above: Order Comment: Order Date: 07/20/24 Order Info: [id number] - CBC Performed By: #### L 100.0500 #### [facility] [address] [place], [address] Lipid Profileon 07-20-2024 Cholesterol [Mass/Vol] 207 mg/dL High 200 [facility] Comment on above: Order Comment: Order Date: 07/20/24 Order Info: 06 - BMP Order Info: [id number] - LIPID Order Info: [id number] - PSA Result Comment: <200 mg/dL Desirable 200-240 mg/dL Borderline >240 mg/dL High Risk Performed By: #### L 501.9910, L500.4100, L500.2500 #### [facility] [address] [place], [address] Cholesterol in HDL [Mass/Vol] 60 mg/dL Normal [facility] Comment on above: Order Comment: Order Date: 07/20/24 Order Info: 666-08 - BMP Order Info: [id number] - LIPID Order Info: [id number] - PSA Result Comment: The drugs N-Acetylcysteine and Metamizole may falsely depress this assay. Reference Range HDL <40 mg/dL Low HDL Cholesterol HDL >or= 60 mg/dL High HDL Cholesterol Performed By: #### L 501.9910, L500.4100, L500.2500 #### [facility] [address] [place], [address] Cholesterol in LDL [Mass/Vol] 139 mg/dL High 0-130 [facility] Comment on above: Order Comment: Order Date: 07/20/24 Order Info: 06 - BMP Order Info: [id number] - LIPID Order Info: [id number] - PSA Performed By: #### L 501.9910, L500.4100, L500.2500 #### [facility] [address] [place], [address] Cholesterol in VLDL [Mass/Vol] 8 mg/dL Normal 5-40 [facility] Comment on above: Order Comment: Order Date: 07/20/24 Order Info: 666- - BMP Order Info: [id number] - LIPID Order Info: [id number] - PSA Performed By: #### L 501.9910, L500.4100, L500.2500 #### [facility] [address] [place], [place], [address] Triglyceride [Mass/Vol] 40 mg/dL Normal [facility] Comment on above: Order Comment: Order [...] By: #### L 501.9910, L500.4100, L500.2500 #### [facility] [address] [place], [place], [address] PSA,Total - Annual Screenon 07-20-2024 PSA,TOT SCREEN 0.46 ng/mL Normal 0.00-4.00 [facility] Comment on above: Order Comment: Order Date: 07/20/24 Order Info: 666-08 - BMP Order Info: - LIPID Order Info: [id number] - PSA Result Comment: This test was performed using the TPSA assay method for the [employer] chemistry system. Values obtained with different assay methods cannot be used interchangably. When changing PSA assays in the course of monitoring a patient, additional sequential testing should be carried out to confirm baseline values. Performed By: #### L 501.9910, L500.4100, L500.2500 #### [facility] [address] [place], [place], [address] Basophil percentageon 2021 Bilirubin [Mass/Vol] 0.40 mg/dL 0.20-1.00 [facility] Work Phone: Comment on above: For patients on eltr ombopag therapy, use of Dimension [place] TBIL is not recommended. Chloride [Moles/Vol] 105 mmol/L 98-107 [facility] Work Phone: Cholesterol [Mass/Vol] 190 mg/dL <200 [facility] Work Phone: Comment on above: <200 mg/dL Desirable 200-240 mg/dL Borderline >240 mg/dL High Risk Glucose [Mass/Vol] 99 mg/dL 74-106 [facility] Work Phone: Potassium [Moles/Vol] 4.3 mmol/L 3.5-5.1 [facility] Work Phone: Protein [Mass/Vol] 7.4 g/dL 6.4-8.2 [facility] Work Phone: Sodium [Moles/Vol] 138 mmol/L 136-145 [facility] Work Phone: Testosterone [Mass/Vol] 360.82 ng/dL [facility] Work Phone: Comment on above: CENTRAL 90% REFERENC E RANGES MALE AGE <50 197.44 - 669.58 ng/dL MALE AGE > or = 50 187.72 - 684.19 ng/dL FEMALE AGE <50 8.38 - 35.01 ng/dL FEMALE AGE > or = 50 <7.00 - 35.92 ng/dL Effective as of 03/25/21 Triglyceride [Mass/Vol] 95 mg/dL <199 [facility] Work Phone: Comment on above: The drugs N-Acetylcy steine and Metamizole may falsely depress this assay.Serum Triglycerides Reference Interval Normal <150 mg/dL Borderline high 150 - 199 mg/dL High 200 - 499 mg/dL Very High > or = 500 mg/dL WBC (Bld) [#/Vol] 8.3 10*3/uL 4.4-11.0 [facility] Work Phone: Blood erythrocytes count (nu mber/volume)on 05-25-2022 RBC (Bld) [#/Vol] 4.79 10*6/uL 4.6-6.2 [facility] Work Phone: Blood hemoglobin measurement (mass/volume)on 05-25-2022 Hemoglobin (Bld) [Mass/Vol] 15.7 g/dL 13.0-16.5 [facility] Work Phone: Blood platelet mean volumeon 05-25-2022 Platelet mean volume (Bld) [Entitic vol] 9.5 fL 6.2-12.0 [facility] Work Phone: Determination of erythrocyte mean corpuscular volume (MCV)on 05-25-2022 MCV (RBC) [Entitic vol] 98.5 fL 80-94 [facility] Work Phone: Hematocrit Auto (Bld) [Volum e fraction]on 05-25-2022 Hematocrit (Bld) [Volume fraction] 47.2 % 40-54 [facility] Work Phone: Laboratory - Chemistry and C hemistry - challengeon 05-25-2022 ALP [Catalytic activity/Vol] 101 U/L 45-117 [facility] Work Phone: ALT [Catalytic activity/Vol] 23 U/L 16-61 [facility] Work Phone: CO2 [Moles/Vol] 25.0 mmol/L 21.0-32.0 [facility] Work Phone: Cobalamin (Vitamin B12) [Mass/Vol] 603 pg/mL 211-911 [facility] Work Phone: Globulin (S) [Mass/Vol] 3.6 g/dL 2.2-4.2 [facility] Work Phone: Urea nitrogen/Creatinine [Mass ratio] 19.9 mg/mg 10-20 [facility] Work Phone: Laboratory - Hematology and Cell countson 05-25-2022 Erythrocyte distribution width (RBC) [Entitic vol] 46.1 fL 35.1-43.9 [facility] Work Phone: Erythrocyte distribution width (RBC) [Ratio] 12.8 % 11.6-14.6 [facility] Work Phone: MCH (RBC) [Entitic mass] 32.8 pg 27.0-32.0 [facility] Work Phone: MCHC Auto (RBC) [Mass/Vol]on 05-25-2022 MCHC (RBC) [Mass/Vol] 33.3 g/dL 32-36 [facility] Work Phone: No Panel Informationon 05-25 Estimated GFR (MDRD) Amer 104 mL/min >60 [facility] Work Phone: Comment on above: GFR Calc Estimated GFR (MDRD) Non-Af Amer 86 mL/min >60 [facility] Work Phone: Comment on above: Non- GFR Calc Prostate Specific Antigen Screen 0.36 ng/mL 0.00-4.00 [facility] Work Phone: Comment on above: This test was perfor med using the TPSA assay method for [employer] chemistry system. Values obtained with differentassay methods cannot be used interchangably.When changing PSA assays in the course of monitoring apatient, additional sequential testing should be carriedout to confirm baseline values. Thyroid Stimulating Hormone (TSH) 1.24 uIU/mL 0.358-3.74 [facility] Work Phone: Vitamin D 25-Hydroxy 43.5 ng/mL [facility] Work Phone: Comment on above: Vitamin D 25(OH) Sta tus Range Deficiency <20 ng/mL (50nmol/L) Insufficiency 20 - 30 ng/mL (50 - 75 nmol/L) Sufficiency 30 - 100 ng/mL (75 - 250 nmol/L) Toxicity >100 ng/mL (>250 nmol/L) Platelets bldon 05-25-2022 Platelets (Bld) [#/Vol] 394 10*3/uL 150-450 [facility] Work Phone: Serum or plasma albumin osbaldo urement (mass/volume)on 05-25-2022 Albumin [Mass/Vol] 3.8 g/dL 3.2-5.0 [facility] Work Phone: Serum or plasma albumin/glob ulin mass ratioon 05-25-2022 Albumin/Globulin [Mass ratio] 1.1 {ratio} 0.9-2.4 [facility] Work Phone: Serum or plasma calcium osbaldo urement (mass/volume)on 05-25-2022 Calcium [Mass/Vol] 8.8 mg/dL 8.5-10.1 [facility] Work Phone: Serum or plasma cholesterol in HDL measurement (mass/volume)on 05-25-2022 Cholesterol in HDL [Mass/Vol] 48 mg/dL >40 [facility] Work Phone: Comment on above: The drugs N-Acetylcy steine and Metamizole may falsely depress this assay. Reference Range HDL <40 mg/dL Low HDL Cholesterol HDL >or= 60 mg/dL High HDL Cholesterol Serum or plasma cholesterol in VLDL measurement (mass/volume)on 05-25-2022 Cholesterol in VLDL [Mass/Vol] 19 mg/dL 5-40 [facility] Work Phone: Serum or plasma creatinine m easurement (mass/volume)on 05-25-2022 Creatinine [Mass/Vol] 0.96 mg/dL 0.70-1.30 [facility] Work Phone: Comment on above: The validity of the calculated GFR & GFRAA in patients over 70 years has not been determined. Clinical correlation is essential. Serum or plasma low density lipoprotein (LDL) cholesterol measurement (mass/volume)on 05-25-2022 Cholesterol in LDL [Mass/Vol] 123 mg/dL 0-130 [facility] Work Phone: Serum or plasma urea nitroge n measurement (mass/volume)on 05-25-2022 Urea nitrogen [Mass/Vol] 19 mg/dL 7-18 [facility] Work Phone: Thin prep Papanicolaou smear with manual screeningon 05-25-2022 Thin prep Papanicolaou smear with manual screening 15 U/L 15-37 [facility] Work Phone: Thin prep Papanicolaou smear with manual screening 8 5-15 [facility] Work Phone: XR CHEST PA AND LATERALon [...] abnormality. IMPRESSION: No acute cardiopulmonary process. Normal [facility] Encounters Encounter Date Encounter Type Care Provider Facility Start: 08-19-2024 End: 08-19-2024 [facility] Start: 07-20-2024 End: 07-20-2024 [facility] Start: 06-05-2023 End: 06-05-2023 ambulatory [facility] Work Phone: Start: 06-05-2023 End: 06-05-2023 [facility] Work Phone: Start: 06-01-2022 End: 06-01-2022 ambulatory [facility] Work Phone: Start: 06-01-2022 End: 06-01-2022 Patient encounter procedure [facility], [facility] Start: 05-25-2022 End: 05-25-2022 ambulatory [facility] Work Phone: Start: 05-25-2022 End: 05-25-2022 Patient encounter procedure [facility] Procedures Date Procedure Procedure Detail Performing Clinician Start: 06-05-2023 CT of chest Start: 06-01-2022 CT of chest Immunizations Immunization Date Immunization Notes Care Provider Fa marie 11-21-2017 tetanus toxoid, redu jazmín diphtheria toxoid, and acellular pertussis vaccine, adsorbed [facility] Payers Date Payer Category Payer Unknown [id number] 2024 Self-pay [id number] 2024 Unknown [id number] Unknown [employer] [id number] Unknown [employer] [place] [id number] Unknown [facility] [facility] [id number] Unknown [id number] Unknown [id number] Social History Date Type Detail Facility [facility]: [facility] Start: 1965 Sex Assigned At Male [facility] Evaluation note Note Date & Type Note Facility Evaluation note No assessment information availa ble [facility] Work Phone: Summary Purpose Family History No Family History Records FoundNo Family History Records Found Advance Directives No Advanced Directives Records Found Advance Directive Response Recorded Date/ Time Living Will No September 24 8:09pm Power of Model And Pattern Supervisor No September 24, 2021 8:09pm Chief Complaint and Reason for Visit Chief Complaint TOBACCO USE Chief Complaint 6 MTH FOLLOW UP/LUNG NODULE Additional Source Comments (unrecognized sect ion and content) No Status Records FoundNo Status Records Found INFORMATION SOURCE (unrecogn ized section and content) DATE CREATED AUTHOR 05/21/2021 [facility] DATE CREATED AUTHOR AUTHOR'S ORGANIZ ATION 09/17/2024 [facility] Goals (unrecognized section and content) Goals may [...] BE BASED ON THE PRIMARY CLINICAL RECORDS. [employer] [facility]. provides no warranty or guarantee of the accuracy or completeness of information in this document.
== END | disposition home or self-care (01) ==
PROVIDERS: PCP Family Medicine; Referring Provider Family Medicine; Visit Provider Family Medicine
DX: Z12.2 Encounter for screening for malignant neoplasm of respiratory organs (principal)
CPT/HCPCS: 71271